=== PATIENT | male | born 1990 ===

== ENCOUNTER 2020-06-28 09:23 | Emergency (ER) | payer OTHER ==
[2020-06-28 09:33] VITALS: BP 126/78
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
== END 2020-06-28 10:35 | disposition home or self-care (01) ==
LOC: ED 09:23
DX: S39.012A Strain of muscle, fascia and tendon of lower back, initial encounter (principal); V49.49XA Driver injured in collision with other motor vehicles in traffic accident, initial encounter; Y93.89 Activity, other specified; Y92.488 Other paved roadways as the place of occurrence of the external cause; Y99.8 Other external cause status
CPT/HCPCS: 99282